=== PATIENT | female | born 1960 | race African-American/Black ===

== ENCOUNTER → 2018-06-09 | Outpatient (CLI) | payer OTHER ==
--- NOTE | 2018-06-09 12:08 | KCIC ---
Left breast ultrasound: Reason for examination: Follow-up nodules seen on mammographic exam. Comparison is made to mammogram dated 05/27/2018 and previous examinations dating back to 08/29/2007. Ultrasound examination was performed in the areas of mammographic concern and in the left axilla. At the 6:00 position, there is a 1.4 cm hypoechoic lesion lying in parallel orientation which is fairly well-circumscribed and appears to show some subtle posterior acoustic enhancement. This likely represents a fibroadenoma however was not seen previously. Ultrasound biopsy is recommended. In the 9:00 position 7 cm from the nipple, there is a small hypoechoic lesion measuring approximately 9.1 mm in size which shows posterior acoustic shadowing further evaluation with ultrasound biopsy is recommended. No other focal suspicious lesions are seen. No abnormal appearing lymph nodes are seen in the left axilla. IMPRESSION: 1.4 cm nodule at the 6:00 position 4 cm from the nipple which likely represents a fibroadenoma but not evident on previous examinations. 9.1 mm nodule at the 9:00 position 7 cm from the nipple with some posterior acoustic shadowing. Recommend further evaluation with ultrasound guided biopsies of these 2 nodules. BI-RADS Category 4: Suspicious. These findings have been discussed with the patient and the patient's physician, Dr. Rocha, was called at 12:02 PM on 06/09/2018 with this report. "Our facility is accredited by the [employer] Mammography [employer]." This patient's information has been entered into a reminder system for the patient to be notified with the results of her examination and a target date for the next mammogram. Electronically signed by: Julisa Mckeon MD (06/09/2018 12:05 PM) [id number]
== END | disposition home or self-care (01) ==
LOC: KCIC US 11:06
PROVIDERS: ATTEND Internal Medicine
DX: N63.23 Unspecified lump in the left breast, lower outer quadrant (principal)
CPT/HCPCS: 76641

== ENCOUNTER → 2021-01-24 | Outpatient (CLI) | payer OTHER ==
--- NOTE | 2021-01-24 11:28 | KCIC ---
Examination: MRI of the right knee without contrast HISTORY: History of right knee pain, fall COMPARISON: None available Technique: Multiplanar, multisequence MR imaging of the right knee was performed without contrast. FINDINGS: Anterior cruciate ligament, posterior cruciate ligament appears intact.The medial meniscus, lateral m eniscus appears intact. There is increased signal identified in the proximal portion medial collateral ligament likely partia l tear from the femoral attachment. Lateral collateral ligament complex including the fibular collate ral ligament, biceps femoris tendon, popliteus tendon appears intact. The medial, lateral retinaculum appears intact. Moderate knee joint effusion. Moderate sized popliteal cyst identified. There is moderate increased T2 signal identified in the lateral femoral condyle with small focus of l ow T1, T2 signal identified in the weightbearing portion of the lateral femoral condyle likely subcho ndral/impaction fracture. The extensor mechanism appears intact. There is deep fissuring of cartilage identified in the patellofemoral compartment with subchondral cystic changes likely degenerative becca nges. Mild superficial fraying of cartilage identified in the lateral, patellofemoral compartments. Mild trabecular edema posterior aspect of the medial femoral condyle. There is a small cystic structure identified in the midportion of the proximal tibia deep to the tibi al spine likely degenerative cyst. Moderate joint space loss identified in the medial, lateral, patellofemoral compartments. IMPRESSION: 1. Increased signal identified in the proximal portion of the medial collateral ligament likely part ial tear from femoral attachment. 2. Moderate increased T2 signal identified in the lateral femoral condyle with small focus of low T1 , T2 signal identified in the weightbearing portion of the lateral femoral condyle likely subchondral /impaction fracture. 3. Moderate knee joint effusion with moderate sized popliteal cyst. 4. Grade II chondromalacia patellofemoral compartment. Grade I chondromalacia medial, lateral compar tments. Electronically signed by: Jerry Champion MD (01/24/2021 11:25 AM) [id number]
== END ==
LOC: KCIC MRI 10:01
PROVIDERS: ATTEND Orthopaedic Surgery
DX: M25.461 Effusion, right knee (principal); M94.261 Chondromalacia, right knee; M23.91 Unspecified internal derangement of right knee
CPT/HCPCS: 73721